=== PATIENT | male | born 1980 | race Two or more races ===

== ENCOUNTER → 2017-01-29 | Outpatient (CLI) | payer OTHER ==
[~2017-01-29] MED LIST: METF500T4 PO
[2017-01-29 09:10] LABS: PATH.CAST-FLAG NOT PRESENT; SPERM-FLAG NOT PRESENT; SRC-FLAG NOT PRESENT; XTAL-FLAG NOT PRESENT; YLC-FLAG NOT PRESENT
[2017-01-29 09:23] LABS: BLOOD UREA NITROGEN 16 mg/dL (7-18)
[2017-01-29 09:26] LABS: ASPARTATE AMINO TRANSFERASE 10 U/L (15-37)
== END | disposition home or self-care (01) ==
LOC: STAR 07:58
PROVIDERS: ATTEND Urology
DX: Z01.818 Encounter for other preprocedural examination (principal); N47.1 Phimosis; N48.1 Balanitis; E11.9 Type 2 diabetes mellitus without complications; R82.99 Other abnormal findings in urine
CPT/HCPCS: 36415; 80053; 81001; 87086; 93005

== ENCOUNTER 2017-02-02 05:17 | Day surgery (SDC) | payer OTHER ==
[~2017-02-02] VITALS: Ht 160 cm; Wt 79.3 kg
[2017-02-02 06:13] VITALS: BP 138/89
[2017-02-02] MEDS ORDERED: MIDAZOLAM 1 MG/ML, 2ML ONE (06:14)
[2017-02-02] MEDS ORDERED: DEXAMETHASONE 4 MG/ML, 1ML ONE (06:15)
[2017-02-02] MEDS ORDERED: SUCCINYLCHOLINE 20 MG/ML, 10ML ONE (06:15)
[2017-02-02] MEDS ORDERED: PROPOFOL 10 MG/ML, 20ML ONE (06:15)
[2017-02-02] MEDS ORDERED: ROCURONIUM 10 MG/ML ONE (06:15)
[2017-02-02] MEDS ORDERED: CEFAZOLIN 1,000 MG ONE ×2 (06:15)
[2017-02-02] MEDS ORDERED: ONDANSETRON 2MG/ML, 2ML ONE (06:15)
[2017-02-02] MEDS ORDERED: FENTANYL PF 100 MCG/2ML ONE (06:15)
[2017-02-02] MEDS ORDERED: LACTATED RINGERS 1,000 ML IV SCH (06:19)
[2017-02-02] MEDS ORDERED: LIDOCAINE/PF 1%, 30ML ONE (06:20)
[2017-02-02] MEDS ORDERED: BUPIVACAINE/PF 0.25% ONE (06:20)
[2017-02-02] MEDS ORDERED: LIDOCAINE 1%, 2ML SQ PRN (06:30)
[2017-02-02] MEDS ORDERED: INSULIN SINGLE DOSE, ER SQ-INSULIN ONE ×2 (06:59→08:14)
[2017-02-02] MEDS ORDERED: INSULIN REGULAR 100 UNITS/ML, 3ML VIAL SQ-INSULIN ONE ×2 (07:00→08:30)
[2017-02-02] MEDS ORDERED: FENTANYL PF 100 MCG/2ML IV PRN (07:30)
[2017-02-02] MEDS ORDERED: OXYcodone 5 MG/5 ML ORAL.SOL UDC PO PRN (07:30)
[2017-02-02] MEDS ORDERED: HYDROmorphone 1 MG/ML, 1ML ONE (07:30)
[2017-02-02] MEDS ORDERED: ACETAMINOPHEN 325 MG TABLET PO PRN (07:30)
[2017-02-02] MEDS ORDERED: HYDROmorphone 1 MG/ML, 1ML IV PRN (07:30)
[2017-02-02] MEDS ORDERED: HYDROcodone/APAP 7.5-325MG/15ML UDC PO PRN (07:30)
== END 2017-02-02 11:15 ==
LOC: OUT 05:17
PROVIDERS: ATTEND Urology
DX: N47.1 Phimosis (principal); N48.1 Balanitis; E11.9 Type 2 diabetes mellitus without complications
CPT/HCPCS: 54161; 82962; J0330; J0690; J2250; J2405; J2704; J3010; J3490; J7120; J1100; J1170